=== PATIENT | male | born 1960 | race Caucasian/White ===

== ENCOUNTER 2022-07-05 14:03 | Outpatient (CLI) | payer BC, SELFPAY ==
[2022-07-05 15:42] LABS: Kit Draw Collected
== END 2022-07-05 14:04 | disposition home or self-care (01) ==
LOC: ANHGOSHLAB 14:05
PROVIDERS: PCP Internal Medicine; Visit Provider Clinical Nurse Specialist
DX: E29.1 Testicular hypofunction (principal)
CPT/HCPCS: 36415

== ENCOUNTER 2022-12-16 08:48 | Outpatient (CLI) | payer BC, SELFPAY ==
[2022-12-16 13:05] LABS: Basophils Percent Auto 0.7 % (0.2-1.2); Eosinophils Absolute Auto 0.1 K/mm3 (0-0.3); Eosinophils Percent Auto 1.1 % (0-4.4); Hematocrit 44.4 % (42.0-52.0); Hemoglobin 15.4 g/dL (14.0-18.0); Immature Granulocyte Absolute 0.02 K/mm3 (0.00-0.031); Immature Granulocyte Percent A 0.5 % (0-0.5); Lymphocytes Absolute Auto 1.29 K/mm3 (0.9-3.2); Lymphocytes Percent Auto 29.4 % (18.3-44.2); Mean Corpuscular HGB Conc 34.7 g/dl (32-36); Mean Corpuscular Hemoglobin 31.7 pg (26-34); Mean Corpuscular Volume 91.4 fl (80-100); Monocytes Absolute Auto 0.3 K/mm3 (0.1-0.6); Monocytes Percent Auto 6.8 % (2.6-8.5); Neutrophils Absolute Auto 2.7 K/mm3 (1.3-6.7); Neutrophils Percent Auto 61.5 % (45.5-73.1); Platelet Count Result 230 k/mm3 (150-375); Red Blood Count 4.86 M/mm3 (4.6-6.20); Red Cell Distribution Width 13.5 % (11.5-14.5); White Blood Count 4.4 K/mm3 (4.5-10.0)
[2022-12-16 13:33] LABS: Alanine Aminotransferase 41 U/L (6-50); Albumin Level 4.3 g/dL (3.5-5.1); Alkaline Phosphatase 74 U/L (38-126); Anion Gap 12 mmol/L (8-16); Aspartate Amino Transferase 49 U/L (17-59); Bilirubin,Total 0.7 mg/dL (0.2-1.3); Blood Urea Nitrogen 24 mg/dL (9-20); Carbon Dioxide 26 mmol/L (22-30); Chloride 100 mmol/L (98-107); Estimated Glomerular Filt Rate > 60; Glucose 104 mg/dL (65-110); Potassium 4.7 mmol/L (3.4-5.0); Sodium 138 mmol/L (137-145)
[2022-12-16 13:54] LABS: Prostate Specific Antigen 0.5 ng/mL (< OR = 4.0)
[2022-12-20 14:52] LABS: Testosterone Free 57.8 pg/mL (35.0-155.0); Testosterone Total 425 ng/dL (250-1100)
[2022-12-22 22:17] LABS: Estradiol, Ultrasensitive 17 pg/mL (< OR = 29)
== END 2022-12-16 08:49 | disposition home or self-care (01) ==
LOC: ANHGOSHLAB 08:50
PROVIDERS: PCP Internal Medicine; Visit Provider Nurse Practitioner
DX: E29.1 Testicular hypofunction (principal); Z12.5 Encounter for screening for malignant neoplasm of prostate
CPT/HCPCS: 36415; 80053; 82670; 84153; 84402; 84403; 85025; G0103

== ENCOUNTER 2023-06-20 08:00 | Outpatient (CLI) | payer BC, SELFPAY ==
[2023-06-20 19:00] LABS: Basophils Percent Auto 0.2 % (0.2-1.2); Eosinophils Absolute Auto 0.1 K/mm3 (0-0.3); Eosinophils Percent Auto 2.2 % (0-4.4); Hematocrit 47.1 % (42.0-52.0); Hemoglobin 15.9 g/dL (14.0-18.0); Immature Granulocyte Absolute 0.01 K/mm3 (0.00-0.031); Immature Granulocyte Percent A 0.2 % (0-0.5); Lymphocytes Absolute Auto 1.67 K/mm3 (0.9-3.2); Lymphocytes Percent Auto 37.2 % (18.3-44.2); Mean Corpuscular HGB Conc 33.8 g/dl (32-36); Mean Corpuscular Hemoglobin 31.5 pg (26-34); Mean Corpuscular Volume 93.5 fl (80-100); Mean Platelet Volume 9.4 fl (7.4-10.4); Monocytes Absolute Auto 0.4 K/mm3 (0.1-0.6); Monocytes Percent Auto 8.9 % (2.6-8.5); Neutrophils Absolute Auto 2.3 K/mm3 (1.3-6.7); Neutrophils Percent Auto 51.3 % (45.5-73.1); Platelet Count Result 222 k/mm3 (150-375); Red Blood Count 5.04 M/mm3 (4.6-6.20); Red Cell Distribution Width 14.4 % (11.5-14.5); White Blood Count 4.5 K/mm3 (4.5-10.0)
[2023-06-20 19:17] LABS: Alanine Aminotransferase 39 U/L (6-50); Albumin Level 4.3 g/dL (3.5-5.1); Alkaline Phosphatase 76 U/L (38-126); Anion Gap 9 mmol/L (8-16); Aspartate Amino Transferase 36 U/L (17-59); Bilirubin,Total 0.7 mg/dL (0.2-1.3); Blood Urea Nitrogen 22 mg/dL (9-20); Calcium 9.4 mg/dL (8.4-10.2); Carbon Dioxide 26 mmol/L (22-30); Chloride 101 mmol/L (98-107); Estimated Glomerular Filt Rate > 60; Glucose 90 mg/dL (65-110); Potassium 4.5 mmol/L (3.4-5.0); Sodium 136 mmol/L (137-145)
[2023-06-20 19:37] LABS: Prostate Specific Antigen 1.4 ng/mL (< OR = 4.0)
[2023-06-27 00:21] LABS: Estradiol, Ultrasensitive 12 pg/mL (< OR = 29)
[2023-06-27 17:45] LABS: Testosterone Total 503 ng/dL (250-1100)
== END 2023-06-20 08:01 | disposition home or self-care (01) ==
LOC: ANHGOSHLAB 08:02
PROVIDERS: PCP Internal Medicine; Visit Provider Internal Medicine
DX: E29.1 Testicular hypofunction (principal); Z12.5 Encounter for screening for malignant neoplasm of prostate
CPT/HCPCS: 36415; 80053; 82670; 84153; 84402; 84403; 85025; G0103

== ENCOUNTER 2023-07-17 08:38 | Outpatient (CLI) | payer BC, SELFPAY ==
--- NOTE | 2023-07-17 08:59 | ECHO_ITS ---
Patient Info Name: Russ Orozco Age: 63 years : 1960 Gender: Male Ht: 74 in Wt: 245 lbs BSA: 2.44 m2 HR: 86 bpm BP: 134 / 91 mmHg Technical Quality: Fair Exam Date: 07/17/2023 9:06 AM Exam Location: Echo Lab Patient Status: Outpatient Admit Date: 07/17/2023 Staff Ordering Physician: Jaqueline Sauceda Knitting Inspector: Kunal Osullivan RDCS Attending Provider: Jaqueline Sauceda Referring Physician: Komal PALOMINO; Exam Type: CA echo doppler color flow Study Info Indications R94.31 - Abnormal electrocardiogram ECG EKG Complete two-dimensional, color flow and Doppler transthoracic echocardiogram is performed. Summary 1. Complete two-dimensional, color flow and Doppler transthoracic echocardiogram is performed. 2. Left ventricular chamber dimension is normal. 3. Left ventricular systolic function is normal, estimated at 60-65%. 4. The left ventricular diastolic function is grade I diastolic dysfunction. 5. E/e' 11 is mildly elevated. 6. Left atrial chamber dimension is mildly enlarged. 7. There is mild mitral valve regurgitation. 8. There is trace tricuspid valve regurgitation. 9. No pulmonary hypertension, estimated pulmonary arterial systolic pressure is 16 mmHg. Left Ventricle E/e' 11 is mildly elevated. Left ventricular chamber dimension is normal. Left ventricular systolic function is normal, estimated at 60-65%. The left ventricular diastolic function is grade I diastolic dysfunction. Right Ventricle Right ventricular systolic function is normal and with normal TAPSE 2.6 cm. Right ventricular chamber dimension is normal. Left Atria Left atrial chamber dimension is mildly enlarged. Right Atria Right atrial chamber dimension is normal. Aortic Valve The aortic valve is trileaflet. There is no aortic valve stenosis. There is no aortic valve regurgitation. Pulmonic Valve There is no pulmonic regurgitation. Mitral Valve There is no mitral valve stenosis. There is mild mitral valve regurgitation. Tricuspid Valve There is trace tricuspid valve regurgitation. No pulmonary hypertension, estimated pulmonary arterial systolic pressure is 16 mmHg. Pericardium/Pleural There is no pericardial effusion. Inferior Vena Cava Normal inferior vena cava with >50% collapse upon inspiration consistent with normal right atrial pressure, 5 mmHg. Aorta The aortic root size at the sinus of Valsalva is normal. Left Ventricular Outflow Tract Name Value Normal LVOT 2D LVOT Diameter 2.2 cm LVOT Doppler LVOT Peak Gradient 5 mmHg LVOT Mean Gradient 2 mmHg LVOT VTI 20 cm LVOT VTI/AV VTI Ratio 0.9 LVOT Stroke Volume 78 ml LVOT CO 5.0 l/min LVOT CI 2.1 l/min/m2 Pulmonic Valve Name Value Normal RVOT Doppler RVOT Peak Gradient
== END 2023-07-17 08:39 | disposition home or self-care (01) ==
PROVIDERS: PCP Internal Medicine; Visit Provider Clinical Nurse Specialist
DX: R94.31 Abnormal electrocardiogram [ECG] [EKG] (principal)
CPT/HCPCS: 93306

== ENCOUNTER 2023-12-21 09:06 | Outpatient (CLI) | payer BC, SELFPAY ==
[2023-12-21 19:11] LABS: Anion Gap 10 mmol/L (4-12); Blood Urea Nitrogen 21 mg/dL (9-20); Calcium 8.9 mg/dL (8.4-10.2); Carbon Dioxide 27 mmol/L (22-30); Chloride 100 mmol/L (98-107); Estimated Glomerular Filt Rate > 60; Glucose 84 mg/dL (65-110); Potassium 4.5 mmol/L (3.4-5.0); Sodium 137 mmol/L (137-145)
== END 2023-12-21 09:07 | disposition home or self-care (01) ==
LOC: ANHGOSHLAB 09:07
PROVIDERS: PCP Internal Medicine; Visit Provider Clinical Nurse Specialist
DX: I10 Essential (primary) hypertension (principal)
CPT/HCPCS: 36415; 80048

== ENCOUNTER 2024-02-02 00:41 | Day surgery (SDC) | payer BC, SELFPAY ==
[2024-01-17 11:34] VITALS: BMI 32.1
[2024-02-02 06:56] VITALS: BP 160/87; PULSE 70; RESP 18; TEMP 36.1; O2SAT 100; BMI 32.2
--- NOTE | 2024-02-02 07:04 | P.PNAN_ITS ---
Anes - Initial Pre Proc Eval Procedure: Operation Date: 02/02/24 08:00 Proposed Procedures p Screening Colonoscopy - Celso Penn MD Date/Time: 02/02/24 07:04 Surgeon: Celso Penn MD Pre Op Diagnosis: Neoplasm Screening Patient Data Age: 63 Gender: M Height: 1.88 m Weight: 114 kg Last Vital Signs Temp 97 F L 02/02/24 06:56 Pulse 70 02/02/24 06:56 Resp 18 02/02/24 06:56 BP 160/87 H 02/02/24 06:56 Pulse Ox 100 02/02/24 06:56 O2 Del Method Room Air 02/02/24 06:56 Allergies Allergy/AdvReac Type Severity Reaction Status Date / Time No Known Allergies Allergy Mild Verified 02/02/24 06:55 Home Medications Medication Instructions Recorded Confirmed Type naproxen sodium 220 mg tablet 220 mg PO BID PRN Pain 06/15/20 02/02/24 History cetirizine 10 mg tablet (Zyrtec) 10 mg PO DAILY PRN allergies 05/27/21 02/02/24 History omega 4-syc-hzt-fish oil 1,000 mg 1 cap PO DAILY 05/27/21 02/02/24 History (120 mg-180 mg) capsule (Fish Oil) lisinopril 40 mg tablet See Rx Instructions .Route 09/01/23 02/02/24 Rx .COMPLEX #135 tabs omeprazole 40 mg capsule,delayed See Rx Instructions .Route 09/01/23 02/02/24 Rx release .COMPLEX #90 caps ezetimibe 10 mg tablet See Rx Instructions .Route 11/30/23 02/02/24 Rx .COMPLEX #90 tabs tramadol 50 mg tablet 50 mg PO Q6H PRN pain #60 tabs 12/12/23 02/02/24 Rx lysine 1,000 mg tablet 1,000 mg PO DAILY 12/21/23 02/02/24 History Patient hx anesthesia problems: none Family hx anesthesia problems: none Results Review: All pre-operative results and documents have been reviewed as part of the pre- operative evaluation. [facility] Past Medical History Medical History High blood pressure Screening for prostate cancer Skin tag Surgical History Surgical History History of knee surgery R knee scope Family History Family History Mother Hypertension Family history of osteoarthritis Father Family history of osteoarthritis Family history of liver disease Social History Social History Smoking status: Never smoker Second hand tobacco smoke exposure: Yes Alcohol intake: current Drinks per week: 3 Alcohol use details: Occasional Substance use: never Substance use type: does not use Lack of Transportation: No Lack of Food: Never True Current Housing: I Have Housing Concerned About Future Housing: No Difficulty Paying Gas/Electric Bills: No Difficulty Paying for Meds: No Currently Unemployed: No Education: Trade/Vocational Certificate Difficulty w/ Childcare or Family Care: No Living arrangements: with family Spiritual care concerns: No Anes - Eval Final PreProcedure Day of Procedure 02/02/24 07:04 Patient weight: overweight Heart: regular rate and rhythm Lungs: clear to auscultation Airway: Mallampati scale class II Neurological: alert and oriented Last oral intake: >/= 8 hours ASA classification: II Emergent: no Anesthetic plan: proceed Anesthesia type and monitoring: general GIVS and standard monitoring Results Review: All pre-operative results and documents have been reviewed as part of the pre- operative evaluation. HTN. Pt on elliptical 30-45 mins several days/week, no cp or sob. Informed Consent: The patient's anesthetic plan and its attendant risks and benefits were discussed with the patient/family/POA. Questions were solicited and answers provided to the satisfaction of the patient/family/POA.
[2024-02-02] MEDS: LACTATED RINGERS 1,000 ML 150 ML IV CONT (07:08)
--- NOTE | 2024-02-02 08:17 | PM.IMHP ---
H&P: HPI History of Present Illness Date/Time: 02/02/24 08:17 Chief Complaint: The patient is asymptomatic a comes today for his 10 year screening colonoscopy. Narrative: As above Review of Systems Review of Systems: All systems reviewed & are unremarkable except as noted in HPI and below PMFSH Past Medical History Medical History High blood pressure Screening for prostate cancer Skin tag Surgical History Surgical History History of knee surgery R knee scope Family History Family History Mother Hypertension Family history of osteoarthritis Father Family history of osteoarthritis Family history of liver disease Social History Social History Smoking status: Never smoker Second hand tobacco smoke exposure: Yes Alcohol intake: current Drinks per week: 3 Alcohol use details: Occasional Substance use: never Substance use type: does not use Lack of Transportation: No Lack of Food: Never True Current Housing: I Have Housing Concerned About Future Housing: No Difficulty Paying Gas/Electric Bills: No Difficulty Paying for Meds: No Currently Unemployed: No Education: Trade/Vocational Certificate Difficulty w/ Childcare or Family Care: No Living arrangements: with family Spiritual care concerns: No Meds Home Medications and Allergies Home Medications Medication Instructions Recorded Confirmed Type naproxen sodium 220 mg tablet 220 mg PO BID PRN Pain 06/15/20 02/02/24 History cetirizine 10 mg tablet (Zyrtec) 10 mg PO DAILY PRN allergies 05/27/21 02/02/24 History omega 4-jki-bde-fish oil 1,000 mg 1 cap PO DAILY 05/27/21 02/02/24 History (120 mg-180 mg) capsule (Fish Oil) lisinopril 40 mg tablet See Rx Instructions .Route 09/01/23 02/02/24 Rx .COMPLEX #135 tabs omeprazole 40 mg capsule,delayed See Rx Instructions .Route 09/01/23 02/02/24 Rx release .COMPLEX #90 caps ezetimibe 10 mg tablet See Rx Instructions .Route 11/30/23 02/02/24 Rx .COMPLEX #90 tabs tramadol 50 mg tablet 50 mg PO Q6H PRN pain #60 tabs 12/12/23 02/02/24 Rx lysine 1,000 mg tablet 1,000 mg PO DAILY 12/21/23 02/02/24 History Allergies Allergy/AdvReac Type Severity Reaction Status Date / Time No Known Allergies Allergy Mild Verified 02/02/24 06:55 Vital Signs Vital Signs - 24 hr 02/02/24 06:56 Temperature 97 F L Pulse Rate 70 Respiratory Rate 18 Blood Pressure 160/87 H Pulse Oximetry 100 Oxygen Delivery Room Air Assessment and Plan Assessment and plan (1) Colon cancer screening: Code(s): Z12.11 - Encounter for screening for malignant neoplasm of colon Status: Resolved Plan The patient is deemed a good candidate for the procedure. Consent signed. Will proceed.
[2024-02-02 08:39] VITALS: BP 112/72; PULSE 63; RESP 14; O2SAT 96
[2024-02-02 08:49] VITALS: BP 120/70; PULSE 56; RESP 16; O2SAT 98
[2024-02-02 08:59] VITALS: BP 131/74; PULSE 58; RESP 16; O2SAT 98
== END 2024-02-02 09:23 | disposition home or self-care (01) ==
PROVIDERS: PCP Internal Medicine; Referring Provider Clinical Nurse Specialist; Visit Provider Internal Medicine Gastroenterology
PROC: 0DJD8ZZ Inspection of Lower Intestinal Tract, Via Natural or Artificial Opening Endoscopic (ICD-10-PCS; CPT 45378; principal; 2024-02-02 08:00)
DX: Z12.11 Encounter for screening for malignant neoplasm of colon (principal); I10 Essential (primary) hypertension; Z79.1 Long term (current) use of non-steroidal anti-inflammatories (NSAID); Z79.891 Long term (current) use of opiate analgesic; Z98.890 Other specified postprocedural states
CPT/HCPCS: 45378; J2003; J2704; J7120